=== PATIENT | male | born 1965 | race African-American/Black ===

== ENCOUNTER 2016-07-31 18:26 | Emergency (ER) | payer OTHER | END 2016-07-31 19:00 | disposition home or self-care (01) | LOC: NAV ERS 18:26 | DX: L03.317 Cellulitis of buttock (principal); I10 Essential (primary) hypertension | CPT/HCPCS: 99283 ==

== ENCOUNTER 2017-12-18 07:39 | Emergency (ER) | payer OTHER ==
[2017-12-18] MEDS ORDERED: Sodium Chloride 0.9% 1,000 ML ONE ×2 (08:10→09:38)
[2017-12-18] MEDS ORDERED: Ondansetron HCl/PF 4 MG/2 ML Vial ONE (08:11)
[2017-12-18 08:30] LABS: #Lymphocytes 1.5 thou/uL (1.20-3.40); #Monocytes 0.5 thou/uL (0.11-0.59); #Neutrophils 2.5 thou/uL (1.40-6.50); %Basophils 0.7 % (0.0-1.0); %Lymphocytes 32.9 % (21.0-51.0); %Neutrophils 55.3 % (42.0-75.0); Hemoglobin 16.3 g/dL (14.0-18.0); Mean Corpuscular HGB CONC 30.2 g/dL (32.0-36.0); Mean Corpuscular Hemoglobin 27.4 pg (27.0-31.0); Mean Corpuscular Volume 90.7 fL (78.0-98.0); Mean Platelet Volume 13.1 fL (7.4-10.4); PLT Morphology Comment Appears Adequate; Platelet Count 144 thou/uL (130-400); RBC Distribution Width 13.3 % (11.5-14.5); RBC Morphology Normal; Red Blood Cell (RBC) Count 5.94 mill/uL (4.70-6.10); White Blood Cell (WBC) Count 4.5 thou/uL (4.8-10.8)
[2017-12-18 08:40] LABS: ALT (SGPT) 55 U/L (8-55); AST (SGOT) 75 U/L (5-34); Albumin 4.8 g/dL (3.5-5.0); Alkaline Phosphatase 58 U/L (40-150); Anion Gap 18 mmol/L (10-20); BUN (Urea Nitrogen) 20 mg/dL (8.4-25.7); Bilirubin, Total 0.8 mg/dL (0.2-1.2); Calc. Creatinine Clearance 0 mL/min (70-130); Calcium 9.9 mg/dL (7.8-10.44); Carbon Dioxide 23 mmol/L (22-29); Chloride 99 mmol/L (98-107); Estimated GFR-MDRD 45; Globulin 5.5 g/dL (2.4-3.5); Glucose 118 mg/dL (70-105); Protein, Total 10.3 g/dL (6.0-8.3); Sodium 136 mmol/L (136-145)
[2017-12-18 09:39] LABS: Bilirubin Small (Negative); Blood, Urine Trace (Negative); Glucose, Urine (Dipstick) Negative (Negative); Leukocyte Negative (Negative); Nitrite Negative (Negative); Protein, Urine (Dipstick) 100 mg/dL (Neg-Trace); Urobilinogen 0.2 mg/dL (0.2-1.0); pH, Urine 5.5 (5.0-9.0)
[2017-12-18 09:46] LABS: Clarity SL HAZY (Clear)
[2017-12-18 09:48] LABS: Crystals/HPF RARE URIC ACID HPF (Negative); RBC/HPF 0-3 HPF (0-3); Squamous Epithelial 0-3 HPF (0-3); WBC/HPF 0-3 HPF (0-3)
[2017-12-18 09:49] LABS: Hyaline Casts/LPF 4-6 HYALINE CAST LPF (0-3 Hyaline)
== END 2017-12-18 10:29 | disposition home or self-care (01) ==
LOC: NAV ERS 07:39
DX: E86.0 Dehydration (principal); Z87.891 Personal history of nicotine dependence
CPT/HCPCS: 36415; 80053; 81003; 81015; 85025; 96361; 96374; J2405; J7050

== ENCOUNTER 2018-01-07 07:47 | Emergency (ER) | payer OTHER ==
[2018-01-07] MEDS ORDERED: Sodium Chloride 0.9% 1,000 ML ONE (08:08)
[2018-01-07] MEDS ORDERED: Loperamide HCl 2 MG CAP ONE (08:09)
[2018-01-07 08:40] LABS: #Eosinphils 0.1 thou/uL (0.0-0.7); #Lymphocytes 1.2 thou/uL (1.20-3.40); #Monocytes 0.4 thou/uL (0.11-0.59); #Neutrophils 1.3 thou/uL (1.40-6.50); %Basophils 1.1 % (0.0-1.0); %Eosinophils 1.8 % (0.0-10.0); %Lymphocytes 39.6 % (21.0-51.0); %Monocytes 12.7 % (0.0-10.0); %Neutrophils 44.8 % (42.0-75.0); Hemoglobin 15.7 g/dL (14.0-18.0); Mean Corpuscular HGB CONC 30.9 g/dL (32.0-36.0); Mean Corpuscular Hemoglobin 26.9 pg (27.0-31.0); Mean Corpuscular Volume 87.1 fL (78.0-98.0); Mean Platelet Volume 12.7 fL (7.4-10.4); Platelet Count 143 thou/uL (130-400); RBC Distribution Width 12.2 % (11.5-14.5); Red Blood Cell (RBC) Count 5.84 mill/uL (4.70-6.10)
[2018-01-07 08:54] LABS: ALT (SGPT) 102 U/L (8-55); AST (SGOT) 99 U/L (5-34); Albumin 4.4 g/dL (3.5-5.0); Alkaline Phosphatase 56 U/L (40-150); Anion Gap 18 mmol/L (10-20); BUN (Urea Nitrogen) 16 mg/dL (8.4-25.7); Bilirubin, Total 0.8 mg/dL (0.2-1.2); Calc. Creatinine Clearance 0 mL/min (70-130); Calcium 9.8 mg/dL (7.8-10.44); Carbon Dioxide 25 mmol/L (22-29); Chloride 94 mmol/L (98-107); Estimated GFR-MDRD 55; Globulin 4.8 g/dL (2.4-3.5); Glucose 94 mg/dL (70-105); Potassium 3.1 mmol/L (3.5-5.1); Protein, Total 9.2 g/dL (6.0-8.3); Sodium 134 mmol/L (136-145)
[2018-01-07] MEDS ORDERED: Potassium Chloride 20 MEQ TAB ONE (09:22)
== END 2018-01-07 09:30 | disposition home or self-care (01) ==
LOC: NAV ERS 07:47
DX: E86.0 Dehydration (principal); E87.6 Hypokalemia; Z87.891 Personal history of nicotine dependence
CPT/HCPCS: 36415; 80053; 85025; 96360; J7050

== ENCOUNTER 2018-02-12 09:05 | Emergency (ER) | payer OTHER ==
[~2018-02-12 09:05] MED LIST: Iopamidol 370 76% 100 ML VIAL ONE
[2018-02-12] MEDS ORDERED: Sodium Chloride 0.9% 1,000 ML ONE ×2 (11:23→11:44)
[2018-02-12 11:48] LABS: #Eosinphils 0.1 thou/uL (0.0-0.7); #Lymphocytes 0.5 thou/uL (1.20-3.40); #Monocytes 0.4 thou/uL (0.11-0.59); %Basophils 1.4 % (0.0-1.0); %Lymphocytes 15.8 % (21.0-51.0); %Monocytes 11.5 % (0.0-10.0); %Neutrophils 67.4 % (42.0-75.0); Differential Comment SCANNED; Hemoglobin 14.6 g/dL (14.0-18.0); Mean Corpuscular HGB CONC 31.4 g/dL (32.0-36.0); Mean Corpuscular Hemoglobin 26.4 pg (27.0-31.0); Mean Corpuscular Volume 84.2 fL (78.0-98.0); Mean Platelet Volume 10.9 fL (7.4-10.4); Platelet Count 132 thou/uL (130-400); RBC Distribution Width 12.1 % (11.5-14.5); Red Blood Cell (RBC) Count 5.52 mill/uL (4.70-6.10)
[2018-02-12 11:53] LABS: ALT (SGPT) 82 U/L (8-55); AST (SGOT) 202 U/L (5-34); Acetaminophen Less than 6.0 mcg/mL (10.0-30.0); Albumin 4.3 g/dL (3.5-5.0); Alcohol Less than 10 mg/dL (Less than 10); Alkaline Phosphatase 64 U/L (40-150); Anion Gap 18 mmol/L (10-20); BUN (Urea Nitrogen) 44 mg/dL (8.4-25.7); Bilirubin, Total 1.2 mg/dL (0.2-1.2); CK (CPK) 61 U/L (30-200); Calc. Creatinine Clearance 0 mL/min (70-130); Carbon Dioxide 22 mmol/L (22-29); Chloride 89 mmol/L (98-107); Estimated GFR-MDRD 40; Globulin 4.3 g/dL (2.4-3.5); Glucose 99 mg/dL (70-105); Lipase 98 U/L (8-78); Magnesium 2.3 mg/dL (1.6-2.6); Protein, Total 8.6 g/dL (6.0-8.3); Salicylate Less than 8.0 mg/dL (15.0-30.0); Sodium 126 mmol/L (136-145)
[2018-02-12 11:57] LABS: Troponin I 0.012 ng/mL (< 0.028)
--- NOTE | 2018-02-12 12:08 | CT ---
CT ABDOMEN AND PELVIS WITH IV CONTRAST: Date: 02/12/18 INDICATION: Weakness, dizziness, and anorexia. COMPARISON: None. FINDINGS: There is subsegmental atelectasis within portions of the left lower lobe. No focal hepatic lesion is evident. Pancreas and adrenal glands are normal appearing. Spleen is normal appearing. Kidneys are normal appearing. No free fluid is evident. Bladder, rectum, and perirectal soft tissues are unremarkable. Small and large bowel are of normal caliber. The appendix appears within normal limits in the right lower quadrant of the abdomen. There is chronic appearing wedge compression abnormality of L2. 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 Small superior end plate compression abnormality of T10. IMPRESSION: 1. No definite acute abnormality involving the abdomen or pelvis. 2. Remote-appearing compression abnormality of L2. 3. Superior end plate compression abnormality of T10 of undetermined chronicity. POS: [facility]
[2018-02-12 14:03] LABS: Bilirubin Negative (Negative); Blood, Urine Negative (Negative); Glucose, Urine (Dipstick) Negative (Negative); Leukocyte Negative (Negative); Nitrite Negative (Negative); Protein, Urine (Dipstick) 100 mg/dL (Neg-Trace); Urobilinogen 0.2 mg/dL (0.2-1.0)
[2018-02-12 14:04] LABS: Clarity SL HAZY (Clear)
[2018-02-12 14:08] LABS: Amphetamine Not Detected (NotDetected); Barbiturates Screen Not Detected (NotDetected); Benzodiazepine Screen Not Detected (NotDetected); Cocaine Metabolite Screen Not Detected (NotDetected); Medtox Control Line Valid? VALID (VALID); Methadone Not Detected (NotDetected); Methamphetamine Not Detected (NotDetected); Opiate Screen Not Detected (NotDetected); Oxycodone Screen Not Detected (NotDetected); Phencyclidine (PCP) Not Detected (NotDetected); THC/Cannabinoid Screen Not Detected (NotDetected); Tricyclic Screen Not Detected (NotDetected)
[2018-02-12 14:10] LABS: WBC/HPF 0-3 HPF (0-3)
== END 2018-02-12 15:45 | disposition short-term general hospital (02) ==
LOC: NAV ERS 09:05
DX: E87.1 Hypo-osmolality and hyponatremia (principal); E87.6 Hypokalemia; Z87.891 Personal history of nicotine dependence
CPT/HCPCS: 74177; 80053; 80306; 80307; 81003; 81015; 82553; 83605; 83690; 83735; 84443; 84484; 85025; 93005; 96360; 96361; J7050